=== PATIENT | female | born 1950 | race Two or more races ===

== ENCOUNTER 2018-11-07 12:38 | Outpatient (CLI) | payer OTHER | END 2018-11-07 13:06 | disposition home or self-care (01) | LOC: NUCLEAR 12:38 | DX: M81.0 Age-related osteoporosis without current pathological fracture (principal); Z13.820 Encounter for screening for osteoporosis ==

== ENCOUNTER 2018-11-07 14:14 | Outpatient (CLI) | payer OTHER | END 2018-11-07 14:22 | disposition home or self-care (01) | LOC: MAMO-SONO 14:14 | DX: Z12.31 Encounter for screening mammogram for malignant neoplasm of breast (principal); Z87.898 Personal history of other specified conditions; N64.4 Mastodynia ==

== ENCOUNTER 2020-01-29 09:30 | Outpatient (CLI) | payer OTHER | END 2020-01-29 09:33 | disposition home or self-care (01) | LOC: MAMO-SONO 09:30 | DX: Z12.31 Encounter for screening mammogram for malignant neoplasm of breast (principal); Z87.898 Personal history of other specified conditions; N83.201 Unspecified ovarian cyst, right side; N64.4 Mastodynia ==

== ENCOUNTER 2021-04-06 12:31 | Outpatient (CLI) | payer OTHER | END 2021-04-06 12:37 | disposition home or self-care (01) | LOC: MAMO-SONO 12:31 | PROVIDERS: ATTEND Internal Medicine | DX: Z12.31 Encounter for screening mammogram for malignant neoplasm of breast (principal); Z87.898 Personal history of other specified conditions; N64.4 Mastodynia ==

== ENCOUNTER 2022-06-01 11:14 | Outpatient (CLI) | payer OTHER | END 2022-06-01 11:20 | disposition home or self-care (01) | LOC: NUCLEAR 11:14 | PROVIDERS: ATTEND Internal Medicine | DX: M81.0 Age-related osteoporosis without current pathological fracture (principal) ==

== ENCOUNTER 2023-04-13 10:36 | Outpatient (CLI) | payer OTHER | END 2023-04-13 10:51 | disposition home or self-care (01) | LOC: MAMO-SONO 10:36 | PROVIDERS: ATTEND Internal Medicine | DX: Z12.31 Encounter for screening mammogram for malignant neoplasm of breast (principal); N64.4 Mastodynia ==

== ENCOUNTER 2023-06-09 12:56 | Emergency (ER) | payer OTHER ==
[~2023-06-09] VITALS: Ht 160 cm; Wt 55.3 kg
== END 2023-06-09 14:54 | disposition home or self-care (01) ==
LOC: ER 12:56
DX: I83.91 Asymptomatic varicose veins of right lower extremity (principal); Z88.8 Allergy status to other drugs, medicaments and biological substances; Z85.9 Personal history of malignant neoplasm, unspecified

== ENCOUNTER 2024-06-11 14:01 | Outpatient (CLI) | payer OTHER | END 2024-06-11 14:02 | disposition home or self-care (01) | LOC: NUCLEAR 14:01 | DX: M81.0 Age-related osteoporosis without current pathological fracture (principal) ==

== ENCOUNTER 2025-03-20 13:09 | Outpatient (CLI) | payer OTHER | END 2025-03-20 13:15 | disposition home or self-care (01) | LOC: MAMO-SONO 13:09 | PROVIDERS: ATTEND Internal Medicine | DX: N64.4 Mastodynia (principal); Z12.31 Encounter for screening mammogram for malignant neoplasm of breast ==